=== PATIENT | male | born 1935 | race Caucasian/White ===

== ENCOUNTER → 2017-10-06 02:51 | Outpatient (RCR) | payer MEDICARE, BC, SELFPAY ==
[2017-09-06] MEDS: Heparin 500 UNITS/5 ML SYRINGE IV (08:40)
[2017-09-06] MEDS: Normal Saline Flush 10 ML SYR IVP (08:40)
[2017-09-06 09:12] LABS: ALT 29 U/L (12-78); AST 38 U/L (15-37); Albumin 4.6 g/dL (3.4-5.0); Alkaline Phosphatase 52 U/L (46-116); Anion Gap 10.1 mmol/L (3-11); BUN 24 mg/dL (7-18); Bilirubin, Total 0.6 mg/dL (0.2-1.0); CO2 26.9 mmol/L (21.0-32.0); CREATININE 1.18 mg/dL (0.70-1.30); Calcium 8.7 mg/dL (8.5-10.1); Chloride 104 mmol/L (98-107); Estimated GFR 59.55 (mL/min/1.73m2); Glucose 104 mg/dL (70-100); Potassium 4.1 mmol/L (3.5-5.1); Sodium 141 mmol/L (136-145); Total Protein 7.2 g/dL (6.4-8.2)
[2017-09-06 09:27] LABS: HCT 31.1 % (40.0-50.0); HGB 10.1 g/dL (13.5-17.5); Mean Corp. HGB Concentration 32.5 g/dL (32.0-36.0); Mean Corpuscular Hemoglobin 34.1 pg (27.0-33.0); Mean Corpuscular Volume 105.1 fL (80-95); RBC 2.96 m/cumm (4.50-6.00); RBC Distribution Width 19.5 % (11.8-14.1); White Blood Cell Count 192.56 k/cumm (4.4-10.8)
[2017-09-06 09:28] LABS: Absolute Basophil Count 1.93 k/cumm (0.0-0.2); Absolute Lymphocyte Count 5.78 k/cumm (1.2-3.4); Absolute Neutrophil Count 115.54 k/cumm (1.2-6.7); Platelet Count 56 x1000/uL (130-400); Promyelocytes % 2 %
[2017-09-06 09:29] LABS: Anisocytosis 2+; Diff Comment Manual Differential; Nucleated RBC 1 /100WBC; Other Cells 9
[2017-09-06 09:30] LABS: Basophilic Stippling Present; Macrocytosis 2+; Poikilocytes 1+
[2017-09-11] MEDS: Normal Saline Flush 10 ML SYR IVP (12:05)
[2017-09-11 12:38] LABS: ALT 34 U/L (12-78); AST 37 U/L (15-37); Albumin 4.6 g/dL (3.4-5.0); Alkaline Phosphatase 49 U/L (46-116); Anion Gap 8.7 mmol/L (3-11); BUN 25 mg/dL (7-18); Bilirubin, Total 0.6 mg/dL (0.2-1.0); CO2 26.3 mmol/L (21.0-32.0); CREATININE 1.16 mg/dL (0.70-1.30); Calcium 8.8 mg/dL (8.5-10.1); Chloride 104 mmol/L (98-107); Glucose 95 mg/dL (70-100); Potassium 4.2 mmol/L (3.5-5.1); Sodium 139 mmol/L (136-145); Total Protein 7.5 g/dL (6.4-8.2)
[2017-09-11 13:01] LABS: HCT 30.4 % (40.0-50.0); HGB 9.9 g/dL (13.5-17.5); Mean Corp. HGB Concentration 32.6 g/dL (32.0-36.0); Mean Corpuscular Volume 104.5 fL (80-95); RBC 2.91 m/cumm (4.50-6.00); RBC Distribution Width 19.6 % (11.8-14.1)
[2017-09-11 13:02] LABS: Platelet Count 54 x1000/uL (130-400)
[2017-09-11 13:04] LABS: Absolute Lymphocyte Count 7.96 k/cumm (1.2-3.4); Absolute Monocyte Count 7.96 k/cumm (0.11-0.7); Absolute Neutrophil Count 87.57 k/cumm (1.2-6.7); White Blood Cell Count 159.22 k/cumm (4.4-10.8)
[2017-09-11 13:05] LABS: Absolute Basophil Count 1.59 k/cumm (0.0-0.2); Other Cells 12; Promyelocytes % 2 %
[2017-09-11 13:06] LABS: Anisocytosis 2+; Diff Comment Manual Differential; Nucleated RBC 2 /100WBC
[2017-09-11 13:07] LABS: Hypochromasia 1+; Macrocytosis 1+; Microcytosis 1+; Polychromasia Present
[2017-09-15] MEDS: Normal Saline Flush 10 ML SYR IVP (08:00)
[2017-09-15 08:43] LABS: ALT 23 U/L (12-78); AST 32 U/L (15-37); Albumin 4.1 g/dL (3.4-5.0); Alkaline Phosphatase 48 U/L (46-116); Anion Gap 11.8 mmol/L (3-11); BUN 18 mg/dL (7-18); Bilirubin, Total 0.5 mg/dL (0.2-1.0); CO2 26.2 mmol/L (21.0-32.0); CREATININE 1.21 mg/dL (0.70-1.30); Calcium 8.5 mg/dL (8.5-10.1); Chloride 106 mmol/L (98-107); Estimated GFR 57.85 (mL/min/1.73m2); Glucose 97 mg/dL (70-100); Potassium 3.8 mmol/L (3.5-5.1); Sodium 144 mmol/L (136-145); Total Protein 6.9 g/dL (6.4-8.2)
[2017-09-15 09:14] LABS: HCT 27.3 % (40.0-50.0); HGB 8.8 g/dL (13.5-17.5); Mean Corpuscular Volume 105.4 fL (80-95); RBC 2.59 m/cumm (4.50-6.00)
[2017-09-15 09:15] LABS: Mean Corp. HGB Concentration 32.2 g/dL (32.0-36.0); Platelet Count 51 x1000/uL (130-400)
[2017-09-15 09:18] LABS: Absolute Lymphocyte Count 10.42 k/cumm (1.2-3.4); Absolute Monocyte Count 7.82 k/cumm (0.11-0.7); Absolute Neutrophil Count 75.55 k/cumm (1.2-6.7); Promyelocytes % 2 %; White Blood Cell Count 130.25 k/cumm (4.4-10.8)
[2017-09-15 09:19] LABS: Anisocytosis 2+; Basophilic Stippling Present; Diff Comment Manual Differential; Hypochromasia 1+; Macrocytosis 1+; Nucleated RBC 2 /100WBC; Other Cells 8
[2017-09-15 09:20] LABS: Microcytosis 1+; Polychromasia Present
[2017-09-20 11:50] LABS: HCT 27.3 % (40.0-50.0); HGB 8.5 g/dL (13.5-17.5); Mean Corp. HGB Concentration 31.1 g/dL (32.0-36.0); Mean Corpuscular Hemoglobin 32.4 pg (27.0-33.0); Mean Corpuscular Volume 104.2 fL (80-95); RBC 2.62 m/cumm (4.50-6.00); RBC Distribution Width 19.9 % (11.8-14.1); White Blood Cell Count 100.57 k/cumm (4.4-10.8)
[2017-09-20 11:51] LABS: ALT 22 U/L (12-78); AST 35 U/L (15-37); Absolute Eosinophil Count 2.01 k/cumm (0.0-0.7); Absolute Lymphocyte Count 13.07 k/cumm (1.2-3.4); Absolute Monocyte Count 5.03 k/cumm (0.11-0.7); Absolute Neutrophil Count 49.28 k/cumm (1.2-6.7); Albumin 4.3 g/dL (3.4-5.0); Alkaline Phosphatase 43 U/L (46-116); Anion Gap 7.8 mmol/L (3-11); BUN 25 mg/dL (7-18); Bilirubin, Total 0.7 mg/dL (0.2-1.0); CO2 28.2 mmol/L (21.0-32.0); CREATININE 1.16 mg/dL (0.70-1.30); Calcium 8.4 mg/dL (8.5-10.1); Chloride 106 mmol/L (98-107); Glucose 124 mg/dL (70-100); Platelet Count 57 x1000/uL (130-400); Potassium 3.8 mmol/L (3.5-5.1); Sodium 142 mmol/L (136-145)
[2017-09-20 11:52] LABS: Absolute Basophil Count 1.01 k/cumm (0.0-0.2); Diff Comment Manual Differential; Nucleated RBC 1 /100WBC; Other Cells 12; Promyelocytes % 3 %
[2017-09-20 11:53] LABS: Anisocytosis 2+; Basophilic Stippling Present; Hypochromasia 2+; Poikilocytes 1+; Polychromasia Present
[2017-09-20] MEDS: Normal Saline Flush 10 ML SYR IVP (13:00)
[2017-09-20] MEDS: Heparin 500 UNITS/5 ML SYRINGE IV (13:00)
[2017-09-25] MEDS: Normal Saline Flush 10 ML SYR IVP (09:00)
[2017-09-25 09:43] LABS: ALT 25 U/L (12-78); AST 28 U/L (15-37); Albumin 4.3 g/dL (3.4-5.0); Alkaline Phosphatase 46 U/L (46-116); Anion Gap 8.9 mmol/L (3-11); BUN 18 mg/dL (7-18); Bilirubin, Total 0.6 mg/dL (0.2-1.0); CO2 26.1 mmol/L (21.0-32.0); CREATININE 1.11 mg/dL (0.70-1.30); Calcium 8.2 mg/dL (8.5-10.1); Chloride 107 mmol/L (98-107); Glucose 117 mg/dL (70-100); Potassium 3.7 mmol/L (3.5-5.1); Sodium 142 mmol/L (136-145); Total Protein 7.1 g/dL (6.4-8.2)
[2017-09-25 10:00] LABS: White Blood Cell Count 112.44 k/cumm (4.4-10.8)
[2017-09-25 10:01] LABS: HCT 26.9 % (40.0-50.0); HGB 8.6 g/dL (13.5-17.5); Mean Corpuscular Volume 106.3 fL (80-95); RBC 2.53 m/cumm (4.50-6.00); RBC Distribution Width 21.3 % (11.8-14.1)
[2017-09-25 10:02] LABS: Absolute Lymphocyte Count 14.62 k/cumm (1.2-3.4); Absolute Monocyte Count 3.37 k/cumm (0.11-0.7); Absolute Neutrophil Count 51.72 k/cumm (1.2-6.7); Platelet Count 65 x1000/uL (130-400)
[2017-09-25 10:03] LABS: Absolute Eosinophil Count 2.25 k/cumm (0.0-0.7); Nucleated RBC 1 /100WBC; Other Cells 17; Promyelocytes % 3 %
[2017-09-25 10:04] LABS: Anisocytosis 3+; Basophilic Stippling Present; Diff Comment Manual Differential; Hypochromasia 1+; Macrocytosis 2+; Polychromasia Present
[2017-10-02] MEDS: Heparin 500 UNITS/5 ML SYRINGE IV (08:25)
[2017-10-02] MEDS: Normal Saline Flush 10 ML SYR IVP (08:25)
[2017-10-02 09:26] LABS: HCT 26.8 % (40.0-50.0); HGB 8.4 g/dL (13.5-17.5); Mean Corp. HGB Concentration 31.3 g/dL (32.0-36.0); Mean Corpuscular Hemoglobin 32.9 pg (27.0-33.0); Mean Corpuscular Volume 105.1 fL (80-95); Mean Platelet Volume 13.1 fL (8.0-11.0); Platelet Count 69 x1000/uL (130-400); RBC 2.55 m/cumm (4.50-6.00); RBC Distribution Width 21.8 % (11.8-14.1)
[2017-10-02 09:30] LABS: Absolute Basophil Count 2.84 k/cumm (0.0-0.2); Absolute Lymphocyte Count 1.42 k/cumm (1.2-3.4); Absolute Monocyte Count 7.11 k/cumm (0.11-0.7); Absolute Neutrophil Count 82.48 k/cumm (1.2-6.7); Promyelocytes % 1 %; White Blood Cell Count 142.21 k/cumm (4.4-10.8)
[2017-10-02 09:31] LABS: Anisocytosis 3+; Basophilic Stippling Present; Diff Comment Manual Differential; Howell-Jolly Bodies Present; Hypochromasia 1+; Macrocytosis 1+; Microcytosis 1+; Nucleated RBC 1 /100WBC; Other Cells 15; Polychromasia Present
[2017-10-02 09:32] LABS: Poikilocytes 1+
[2017-10-04] MEDS: Heparin 500 UNITS/5 ML SYRINGE IV (11:20)
[2017-10-04] MEDS: Normal Saline Flush 10 ML SYR IVP (11:39)
[2017-10-06] VITALS (10 sets, daily range): BP systolic 121–150; BP diastolic 63–93; PULSE 67–80; RESP 18; TEMP 36.5–36.9; O2SAT 93–97
[2017-10-06] MEDS: Normal Saline Flush 10 ML SYR IVP ×2 (08:30→13:45)
[2017-10-06] MEDS: Heparin 500 UNITS/5 ML SYRINGE IV (13:45)
== END ==
LOC: INF 09-06 12:49
PROVIDERS: Internal Medicine Hematology & Oncology; PCP Emergency Medicine; Visit Provider Internal Medicine Medical Oncology
DX: D46.9 Myelodysplastic syndrome, unspecified (principal); Z45.2 Encounter for adjustment and management of vascular access device
CPT/HCPCS: 36591 ×7; 36430; 80053; 86850; 86900; 86901; 86920; 85025; P9016

== ENCOUNTER 2017-10-10 13:42 | Outpatient (REF) | payer MEDICARE, SELFPAY ==
[2017-10-10 14:05] LABS: ALT 19 U/L (12-78); AST 28 U/L (15-37); Albumin 4.3 g/dL (3.4-5.0); Alkaline Phosphatase 43 U/L (46-116); Anion Gap 3.9 mmol/L (3-11); BUN 23 mg/dL (7-18); Bilirubin, Total 0.5 mg/dL (0.2-1.0); CO2 28.1 mmol/L (21.0-32.0); CREATININE 1.12 mg/dL (0.70-1.30); Calcium 8.4 mg/dL (8.5-10.1); Chloride 104 mmol/L (98-107); Glucose 88 mg/dL (70-100); Potassium 4.1 mmol/L (3.5-5.1); Sodium 136 mmol/L (136-145)
[2017-10-10 14:27] LABS: White Blood Cell Count 120.07 k/cumm (4.4-10.8)
[2017-10-10 14:28] LABS: HCT 28.1 % (40.0-50.0); HGB 9.2 g/dL (13.5-17.5); RBC 2.71 m/cumm (4.50-6.00)
[2017-10-10 14:29] LABS: Mean Corp. HGB Concentration 32.7 g/dL (32.0-36.0); Mean Corpuscular Hemoglobin 33.9 pg (27.0-33.0); Mean Corpuscular Volume 103.7 fL (80-95); Mean Platelet Volume 13.6 fL (8.0-11.0); RBC Distribution Width 20.6 % (11.8-14.1)
[2017-10-10 14:30] LABS: Absolute Lymphocyte Count 9.61 k/cumm (1.2-3.4); Absolute Neutrophil Count 64.84 k/cumm (1.2-6.7)
[2017-10-10 14:31] LABS: Nucleated RBC 2 /100WBC; Promyelocytes % 2 %
[2017-10-10 14:32] LABS: Diff Comment Manual Differential
[2017-10-10 14:33] LABS: Anisocytosis 3+; Other Cells 16
[2017-10-10 14:34] LABS: Platelet Count 54 x1000/uL (130-400)
== END 2017-10-10 14:02 ==
LOC: LBN 13:42
PROVIDERS: PCP Emergency Medicine; Visit Provider Internal Medicine Hematology & Oncology
DX: D46.9 Myelodysplastic syndrome, unspecified (principal)
CPT/HCPCS: 80053; 85025

== ENCOUNTER 2017-11-03 00:46 | Outpatient (RCR) | payer MEDICARE, BC, SELFPAY ==
[2017-10-16] MEDS: Normal Saline Flush 10 ML SYR IVP (08:25)
[2017-10-16] MEDS: Heparin 500 UNITS/5 ML SYRINGE (08:25)
[2017-10-16 08:56] LABS: ALT 20 U/L (12-78); AST 28 U/L (15-37); Albumin 4.1 g/dL (3.4-5.0); Alkaline Phosphatase 53 U/L (46-116); Anion Gap 9.4 mmol/L (3-11); BUN 21 mg/dL (7-18); Bilirubin, Total 0.5 mg/dL (0.2-1.0); CO2 27.6 mmol/L (21.0-32.0); CREATININE 1.35 mg/dL (0.70-1.30); Calcium 8.3 mg/dL (8.5-10.1); Chloride 105 mmol/L (98-107); Estimated GFR 50.85 (mL/min/1.73m2); Glucose 140 mg/dL (70-100); Potassium 3.6 mmol/L (3.5-5.1); Sodium 142 mmol/L (136-145)
[2017-10-16 09:24] LABS: White Blood Cell Count 120.22 k/cumm (4.4-10.8)
[2017-10-16 09:25] LABS: HCT 28.2 % (40.0-50.0); Mean Corp. HGB Concentration 31.9 g/dL (32.0-36.0); Mean Corpuscular Hemoglobin 33.3 pg (27.0-33.0); Mean Corpuscular Volume 104.4 fL (80-95); RBC Distribution Width 20.8 % (11.8-14.1)
[2017-10-16 09:26] LABS: Absolute Lymphocyte Count 16.83 k/cumm (1.2-3.4); Absolute Monocyte Count 6.01 k/cumm (0.11-0.7); Atypical Lymphocytes % 6
[2017-10-16 09:27] LABS: Diff Comment Manual Differential; Other Cells 18
[2017-10-16 09:28] LABS: Anisocytosis 2+; Microcytosis 2+; Platelet Count 48 x1000/uL (130-400)
[2017-10-23] MEDS: Heparin 500 UNITS/5 ML SYRINGE IV (08:35)
[2017-10-23] MEDS: Normal Saline Flush 10 ML SYR IVP (08:35)
[2017-10-23 09:07] LABS: HCT 27.2 % (40.0-50.0); HGB 8.8 g/dL (13.5-17.5); Mean Corp. HGB Concentration 32.4 g/dL (32.0-36.0); Mean Corpuscular Hemoglobin 33.1 pg (27.0-33.0); Mean Corpuscular Volume 102.3 fL (80-95); RBC 2.66 m/cumm (4.50-6.00); RBC Distribution Width 20.7 % (11.8-14.1)
[2017-10-23 09:13] LABS: ALT 21 U/L (12-78); AST 29 U/L (15-37); Albumin 4.2 g/dL (3.4-5.0); Alkaline Phosphatase 48 U/L (46-116); Anion Gap 9.7 mmol/L (3-11); BUN 20 mg/dL (7-18); Bilirubin, Total 0.6 mg/dL (0.2-1.0); CO2 27.3 mmol/L (21.0-32.0); CREATININE 1.19 mg/dL (0.70-1.30); Calcium 8.4 mg/dL (8.5-10.1); Chloride 105 mmol/L (98-107); Estimated GFR 58.82 (mL/min/1.73m2); Glucose 99 mg/dL (70-100); Sodium 142 mmol/L (136-145)
[2017-10-23 09:28] LABS: Absolute Lymphocyte Count 9.26 k/cumm (1.2-3.4); Absolute Monocyte Count 7.94 k/cumm (0.11-0.7)
[2017-10-23 09:29] LABS: Anisocytosis 3+; Basophilic Stippling Present; Diff Comment Manual Differential; Nucleated RBC 2 /100WBC; Other Cells 24; Promyelocytes % 4 %
[2017-10-23 09:30] LABS: Macrocytosis 2+; Poikilocytes 2+; Polychromasia Present
[2017-10-23 09:31] LABS: Platelet Count 51 x1000/uL (130-400)
[2017-10-23 09:33] LABS: White Blood Cell Count 132.35 k/cumm (4.4-10.8)
[2017-10-30] MEDS: Normal Saline Flush 10 ML SYR IVP (08:25)
[2017-10-30] MEDS: Heparin 500 UNITS/5 ML SYRINGE IV (08:25)
[2017-10-30 09:44] LABS: ALT 24 U/L (12-78); AST 28 U/L (15-37); Albumin 4.2 g/dL (3.4-5.0); Alkaline Phosphatase 45 U/L (46-116); Anion Gap 11.8 mmol/L (3-11); BUN 23 mg/dL (7-18); Bilirubin, Total 0.6 mg/dL (0.2-1.0); CO2 26.2 mmol/L (21.0-32.0); CREATININE 1.12 mg/dL (0.70-1.30); Calcium 8.5 mg/dL (8.5-10.1); Chloride 105 mmol/L (98-107); Glucose 132 mg/dL (70-100); Potassium 3.4 mmol/L (3.5-5.1); Sodium 143 mmol/L (136-145); Total Protein 6.8 g/dL (6.4-8.2)
[2017-10-30 10:06] LABS: HCT 24.8 % (40.0-50.0); HGB 8.2 g/dL (13.5-17.5); Mean Corpuscular Hemoglobin 34.2 pg (27.0-33.0); Mean Corpuscular Volume 103.3 fL (80-95)
[2017-10-30 10:07] LABS: Mean Corp. HGB Concentration 33.1 g/dL (32.0-36.0); Platelet Count 56 x1000/uL (130-400); RBC Distribution Width 21.7 % (11.8-14.1)
[2017-10-30 10:10] LABS: Absolute Monocyte Count 3.57 k/cumm (0.11-0.7); Absolute Neutrophil Count 60.67 k/cumm (1.2-6.7); Nucleated RBC 1 /100WBC; Promyelocytes % 9 %
[2017-10-30 10:11] LABS: Anisocytosis 3+; Basophilic Stippling Present; Hypochromasia 2+; Macrocytosis 2+; Polychromasia Present
[2017-10-30 10:12] LABS: Poikilocytes 3+
[2017-10-30 10:17] LABS: White Blood Cell Count 118.97 k/cumm (4.4-10.8)
[2017-10-30 10:39] LABS: Other Cells 20
[2017-11-01] MEDS: Heparin 500 UNITS/5 ML SYRINGE IV (12:15)
[2017-11-01] MEDS: Normal Saline Flush 10 ML SYR IVP (12:15)
[2017-11-01 13:25] LABS: HGB 7.9 g/dL (13.5-17.5); RBC 2.34 m/cumm (4.50-6.00); White Blood Cell Count 141.61 k/cumm (4.4-10.8)
[2017-11-01 13:26] LABS: HCT 24.2 % (40.0-50.0); Mean Corp. HGB Concentration 32.6 g/dL (32.0-36.0); Mean Corpuscular Hemoglobin 33.8 pg (27.0-33.0); Mean Corpuscular Volume 103.4 fL (80-95); Platelet Count 46 x1000/uL (130-400); RBC Distribution Width 21.7 % (11.8-14.1)
[2017-11-01 13:28] LABS: Absolute Neutrophil Count 69.39 k/cumm (1.2-6.7)
[2017-11-01 13:29] LABS: Absolute Basophil Count 1.42 k/cumm (0.0-0.2); Absolute Lymphocyte Count 31.15 k/cumm (1.2-3.4); Absolute Monocyte Count 12.74 k/cumm (0.11-0.7); Promyelocytes % 2 %
[2017-11-01 13:30] LABS: Diff Comment Manual Differential; Other Cells 5
[2017-11-01 13:31] LABS: Anisocytosis 3+; Hypochromasia 1+; Poikilocytes 1+; Polychromasia Present
[2017-11-03] VITALS (8 sets, daily range): BP systolic 123–145; BP diastolic 62–74; PULSE 65–74; RESP 18; TEMP 36.7–37.1; O2SAT 91–97
== END 2017-11-05 23:59 | disposition home or self-care (01) ==
LOC: INF 00:46
PROVIDERS: PCP Emergency Medicine; Visit Provider Internal Medicine Hematology & Oncology
DX: D46.9 Myelodysplastic syndrome, unspecified (principal); Z45.2 Encounter for adjustment and management of vascular access device
CPT/HCPCS: 36430; 36591; 80053; 86850; 86900; 86901; 86920; 85025; P9016

== ENCOUNTER 2017-11-13 00:49 | Outpatient (RCR) | payer MEDICARE, BC, SELFPAY ==
[2017-11-06 12:00] LABS: ALT 25 U/L (12-78); AST 30 U/L (15-37); Albumin 4.3 g/dL (3.4-5.0); Alkaline Phosphatase 51 U/L (46-116); Anion Gap 7.1 mmol/L (3-11); BUN 27 mg/dL (7-18); Bilirubin, Total 0.6 mg/dL (0.2-1.0); CO2 28.9 mmol/L (21.0-32.0); CREATININE 1.28 mg/dL (0.70-1.30); Calcium 8.5 mg/dL (8.5-10.1); Chloride 105 mmol/L (98-107); Estimated GFR 54.07 (mL/min/1.73m2); Glucose 107 mg/dL (70-100); Sodium 141 mmol/L (136-145)
[2017-11-06 12:12] LABS: HCT 28.3 % (40.0-50.0); HGB 9.4 g/dL (13.5-17.5); Mean Corp. HGB Concentration 33.2 g/dL (32.0-36.0); Mean Corpuscular Hemoglobin 33.7 pg (27.0-33.0); Mean Corpuscular Volume 101.4 fL (80-95); RBC 2.79 m/cumm (4.50-6.00); RBC Distribution Width 20.4 % (11.8-14.1)
[2017-11-06 12:15] LABS: Absolute Basophil Count 1.31 k/cumm (0.0-0.2); Absolute Lymphocyte Count 5.24 k/cumm (1.2-3.4); Absolute Neutrophil Count 51.07 k/cumm (1.2-6.7); White Blood Cell Count 130.95 k/cumm (4.4-10.8)
[2017-11-06 12:16] LABS: Promyelocytes % 2 %
[2017-11-06 12:17] LABS: Anisocytosis 2+; Diff Comment Manual Differential; Nucleated RBC 3 /100WBC; Other Cells 24
[2017-11-06 12:18] LABS: Hypochromasia 1+; Macrocytosis 1+; Platelet Count 39 x1000/uL (130-400)
[2017-11-13] VITALS (15 sets, daily range): BP systolic 98–135; BP diastolic 50–72; PULSE 63–80; RESP 17–20; TEMP 36.5–37.4; O2SAT 81–95
[2017-11-13 08:09] LABS: ALT 71 U/L (12-78); AST 71 U/L (15-37); Albumin 3.6 g/dL (3.4-5.0); Alkaline Phosphatase 84 U/L (46-116); Anion Gap 10.8 mmol/L (3-11); BUN 37 mg/dL (7-18); Bilirubin, Total 0.7 mg/dL (0.2-1.0); CO2 27.2 mmol/L (21.0-32.0); CREATININE 1.42 mg/dL (0.70-1.30); Calcium 8.4 mg/dL (8.5-10.1); Chloride 101 mmol/L (98-107); Estimated GFR 47.97 (mL/min/1.73m2); Glucose 116 mg/dL (70-100); Potassium 3.8 mmol/L (3.5-5.1); Sodium 139 mmol/L (136-145); Total Protein 6.8 g/dL (6.4-8.2)
[2017-11-13 08:29] LABS: HCT 23.2 % (40.0-50.0); HGB 7.7 g/dL (13.5-17.5); Mean Corpuscular Volume 102.2 fL (80-95); RBC 2.27 m/cumm (4.50-6.00); White Blood Cell Count 240.52 k/cumm (4.4-10.8)
[2017-11-13 08:30] LABS: Absolute Eosinophil Count 2.41 k/cumm (0.0-0.7); Absolute Lymphocyte Count 14.43 k/cumm (1.2-3.4); Absolute Monocyte Count 19.24 k/cumm (0.11-0.7); Absolute Neutrophil Count 141.91 k/cumm (1.2-6.7); Mean Corp. HGB Concentration 33.2 g/dL (32.0-36.0); Mean Corpuscular Hemoglobin 33.9 pg (27.0-33.0); RBC Distribution Width 20.8 % (11.8-14.1)
[2017-11-13 08:31] LABS: Anisocytosis 3+; Diff Comment Manual Differential; Macrocytosis 1+; Microcytosis 1+; Polychromasia Present; Promyelocytes % 2 %
[2017-11-13 08:33] LABS: Platelet Count 49 x1000/uL (130-400)
[2017-11-13 08:34] LABS: Other Cells 16
[2017-11-13] MEDS: Heparin 500 UNITS/5 ML SYRINGE IV (12:40)
[2017-11-13] MEDS: Normal Saline Flush 10 ML SYR IVP (12:41)
== END 2017-12-06 23:59 | disposition home or self-care (01) ==
LOC: INF 00:49
PROVIDERS: PCP Emergency Medicine; Visit Provider Internal Medicine Hematology & Oncology
DX: D46.9 Myelodysplastic syndrome, unspecified (principal); Z45.2 Encounter for adjustment and management of vascular access device
CPT/HCPCS: 36430; 36591; 80053; 86850; 86900; 86901; 86920; 71046; 85025; P9016

== ENCOUNTER 2017-11-13 13:56 | Outpatient (CLI) | payer MEDICARE, BC, SELFPAY ==
--- NOTE | 2017-11-13 16:14 | DI.RAD_ITS ---
SYMPTOMS/DIAGNOSIS: LEUKOCYTOSIS, D72.829, D47.29, ASSESS FOR CHF OR PNA CHEST X-RAY, PA AND LATERAL: Comparison is 02/17/15. The heart size and pulmonary vasculature are within normal limits. There is an indwelling central venous catheter, the tip is located in the superior vena cava. There are increased lung markings seen in the left base and the right upper lobe. 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 No gross effusions or pneumothoraces are identified. Degenerative changes are seen in the spine. IMPRESSION: Infiltrate seen in the left base and right upper lobe suspicious for pneumonia.
== END 2017-11-13 14:16 ==
PROVIDERS: PCP Emergency Medicine; Visit Provider Internal Medicine Hematology & Oncology
DX: D72.829 Elevated white blood cell count, unspecified (principal); J18.9 Pneumonia, unspecified organism; R91.8 Other nonspecific abnormal finding of lung field
CPT/HCPCS: 71046